=== PATIENT | female | born 1965 | race Caucasian/White ===

== ENCOUNTER 2016-11-13 12:34 | Emergency (ER) | payer SELFPAY ==
[~2016-11-13] VITALS: Ht 162.6 cm; Wt 61.0 kg
[2016-11-13 14:36] VITALS: BP 115/78
[2016-11-13] MEDS ORDERED: EC-NAPROSYN500 MG PO (14:41)
== END 2016-11-13 14:36 | disposition home or self-care (01) | DRG 563 ==
LOC: ED 12:34
PROC: 2W3HX1Z Immobilization of Left Thumb using Splint (ICD-10-PCS; principal; 2016-11-13)
DX: S62.512A Displaced fracture of proximal phalanx of left thumb, initial encounter for closed fracture (principal); F17.210 Nicotine dependence, cigarettes, uncomplicated; S63.502A Unspecified sprain of left wrist, initial encounter; W18.30XA Fall on same level, unspecified, initial encounter; Y93.9 Activity, unspecified; Y92.008 Other place in unspecified non-institutional (private) residence as the place of occurrence of the external cause

== ENCOUNTER 2016-11-22 19:42 | Emergency (ER) | payer SELFPAY ==
[~2016-11-22] VITALS: Ht 162.6 cm; Wt 65.0 kg
[~2016-11-22 19:42] MED LIST: EC-NAPROSYN500 MG PO
[2016-11-22 21:20] VITALS: BP 121/88
== END 2016-11-22 21:20 | disposition home or self-care (01) | DRG 561 ==
LOC: ED 19:42
PROC: 2W0 Placement, Anatomical Regions, Change (ICD-10-PCS; principal; 2016-11-22)
DX: S62.502D Fracture of unspecified phalanx of left thumb, subsequent encounter for fracture with routine healing (principal); F17.210 Nicotine dependence, cigarettes, uncomplicated; S63.502D Unspecified sprain of left wrist, subsequent encounter; X58.XXXD Exposure to other specified factors, subsequent encounter